=== PATIENT | female | born 1925 | race Caucasian/White ===

== ENCOUNTER 2016-03-20 10:51 | Inpatient (IN) | payer OTHER ==
[2016-03-20 11:52] LABS: MANUAL DIFF NEEDED? NO
[2016-03-20 11:53] LABS: BASO% 0.3 % (0.0-0.8); EOS# 0.05 X1000 (0.0-0.7); EOS% 0.8 % (0.0-10.0); HEMOGLOBIN 11.2 g/dL (12.0-16.0); LYMPH# 1.52 X1000 (1.2-3.4); LYMPH% 25.8 % (20.5-51.1); MCH 34.8 PG (27-31); MCHC 33.9 g/dL (33-37); MCV 102.5 FL (81-99); MONO# 0.64 X1000 (0.11-0.59); MONO% 10.9 % (1.7-9.3); NEUT% 62.2 % (42.2-75.2); PLT 245 X1000 (130-400); RBC 3.22 XMIL (4.2-5.4)
--- NOTE | 2016-03-20 12:12 | PROVIDER DOCUMENTATION ---
HPI-General Adult - General Chief Complaint: Weakness Stated Complaint: LOW BP/SOB Time Seen by Provider: 03/20/16 11:32 Source: patient, family Allergies/Adverse Reactions: Patient Allergies Allergy/AdvReac Type Severity Reaction Status Date / Time atorvastatin calcium * Allergy Mild NAUSEA/VOMI Verified 10/23/15 12:44 [From Lipitor] TING Latex, Natural Rubber Allergy Mild RASH Verified 10/23/15 12:44 warfarin sodium * Allergy Mild NAUSEA Verified 10/23/15 12:44 [From Coumadin] Home Medications: Home Medication List Medication Instructions Recorded Confirmed Last Taken Type Amiodarone [Cordarone] 100 mg PO BID 11/10/13 10/23/15 10/23/15 07:00 History Aspirin EC 81 mg PO DAILY 02/16/15 10/23/15 1 Day Ago History Ca/D3/Mag/Zinc/Marissa/Jose Rafael/Mgbor 1 each PO DAILY 02/16/15 10/23/15 02/15/15 21:00 History [Caltrate 600+D3+Min Chew Tab] Ergocalciferol (Vitamin D2) 50,000 unit PO EVERY OTHER DAY 02/16/15 10/23/1503/03 09:00 History [Vitamin D] Metoprolol Succinate E.r. [Toprol 25 mg PO DAILY 02/16/15 10/23/15 10/23/15 07: 00 History Xl] Temazepam [Restoril] 15 mg PO HS PRN PRN #15 capsule 02/17/15 10/23/15 Unknown Rx Ondansetron [Zofran] 4 mg PO Q6H PRN PRN #20 tablet 10/19/15 10/23/15 10/22/15 12:00 Rx Cephalexin [Keflex] 500 mg PO TID 10/23/15 10/23/15 10/23/15 07:10 History Levothyroxine [Synthroid] 100 microgm PO DAILY 10/23/15 10/23/15 10/23/15 History 100 Lisinopril [Zestril] 10 mg PO DAILY 10/23/15 10/23/15 10/23/15 07:00 History Hydrocodone/APAP 10 mg/325 mg 1 - 2 each PO Q4H PRN PRN #60 10/25/15 Unknown Rx [[place]-10] tablet Rivaroxaban [Xarelto] 10 mg PO QHS #0 tablet 10/25/15 Unknown Rx - History of Present Illness -Gen Adult Nature of Presenting Problems: Reports to er with cc of generalized weakness sudden onset this morning. Normally walks with walker and was unable to. Reprots been living in assisted living for 1 weak now. Has had a cough and poor appetite per daughter. [facility] treated with levaquin for possible uti. Also complains of left ear pain. Location of Pain/Injury: reports: generalized Severity: reports: moderate Onset/Duration: reports: this morning Timing: reports: still present Similar Symptoms Previously?: No Recently seen or treated by another doctor?: Yes Review of Systems - Adult - REVIEW OF SYSTEMS - ADULT Constitutional: reports: other (gen weak). denies: chills, fever, fatique Eyes: reports: no symptoms reported Ears, Nose, Mouth & Throat: reports: ear pain. denies: sinus problem, throat pain Cardiovascular: denies: chest pain, irregular heart rate, orthopnea, syncope Respiratory: reports: cough. denies: pleurisy, shortness of breath, wheezing Gastrointestinal: reports: poor appetite. denies: abdominal pain, diarrhea, difficulty swallowing, nausea, vomiting Genitourinary: reports: no symptoms reported Musculoskeletal: reports: no symptoms reported Integumentary: reports: no symptoms reported Neurological: reports: no symptoms reported Psychiatric: reports: no symptoms reported Endocrine: reports: no symptoms reported Hematologic/Lymphatic: reports: no symptoms reported Allergic/Immunologic: reports: no symptoms reported All Other Systems: Reviewed and Negative Past History - Adult - PAST MEDICAL HISTORY-ADULT Review of Records: reports: Nursing Assessment Review Major Childhood Illnesses: reports: denies history Cardiovascular: reports: cardiac disease, A-Fib, HTN, hyperlipidemia, pacemaker Respiratory: reports: denies history Gastrointestinal: reports: denies history Obstetrical/Gynecological: reports: denies history Genitourinary: reports: denies history Musculoskeletal: reports: denies history Neurological: reports: denies history Endocrine/Immune: reports: thyroid disorder (Hypo) Other Conditions: reports: other cancer (Skin cancer on nose (removed)) Additional History: Breast Cancer - PRIOR SURGERIES/PROCEDURES Surgical/Procedure History: reports: cholecystectomy, cardiac stent (x2), pacemaker, hysterectomy, other (Mastectomy of Right Breast) - IMMUNIZATION STATUS Childhood Immunizations: See Nurse Assessment Flu Vaccine: See Nurse Assessment - FAMILY HISTORY Family History: reviewed, not pertinent - SOCIAL HISTORY Smoking: denies Substance Use: none/never Physical Exam-General - PHYSICAL EXAM-ADULT Initial Vital Signs Reviewed: Yes - CONSTITUTIONAL General Appearance: appears well, alert, no apparent distress - EYES Eyes: PERRL/EOMI - NECK Neck: non-tender, full range of motion, supple, normal inspection - RESPIRATORY Respiratory: chest non-tender, lungs clear, normal breath sounds, no pleuratic chest pain, no respiratory distress, no accessory muscle use - CARDIOVASCULAR Cardiovascular: normal peripheral pulses, regular rate, rhythm, no edema, no gallop, no JVD, no murmur - MUSCULOSKELETAL Extremity: normal range of motion, non-tender - SKIN Integumentary: normal color, normal turgor, warm/dry - PSYCHIATRIC Psych/Mental Status: normal mood/affect, normal thought content, normal thought process, oriented x 3 Progress - PLAN OF CARE/RESULTS Progress/Plan/Lab Results: Orders Category Date Time Status Cardiac Monitoring DIRECTED Care 03/20/16 11:33 Active Saline Loc NOW Care 03/20/16 11:33 Active CHEST-PORTABLE [RAD] Stat Exams 03/20/16 11:33 Taken CBC WITH ELECTRONIC DIFF [HEME] Stat Lab 03/20/16 11:49 Completed CK PROFILE [SP CHEM] Stat Lab 03/20/16 11:49 Received COMPREHENSIVE METABOLIC PANEL [CHEM] Stat Lab 03/20/16 11:49 Received MAGNESIUM [CHEM] Stat Lab 03/20/16 11:49 Received PRO B-NATRIURETIC PEPTIDE Stat Lab 03/20/16 11:49 Received [address]IME WITH INR PL [COAG] Stat Lab 03/20/16 11:[address] [COAG] Stat Lab 03/20/16 11:49 Received TROPONIN T Stat Lab 03/20/16 11:[address] W/POSS RFLX CULT [URINALYSIS] Stat Lab 03/20/16 11:33 Uncollected EKG [EKG] Stat Ther 03/20/16 11:33 Ordered Vital Signs - 24 hr 03/20/16 10:58 Temperature 98 F Pulse Rate 72 Respiratory 18 Rate Blood Pressure 171/89 O2 Sat by Pulse 97 Oximetry Laboratory Tests 03/20/16 03/20/16 03/20/16 11:49 11:49 11:49 WBC RBC Hgb Hct MCV MCH MCHC RDW Std Deviation Plt Count MPV Immature Gran % (Auto) Neut % (Auto) Lymph % (Auto) [place] % (Auto) Eos % (Auto) Baso % (Auto) Immature Gran # (Auto) Neut # (Auto) Lymph # (Auto) [place] # (Auto) Eos # (Auto) Baso # (Auto) PT INR APTT (Factor Assay) Sodium 129 L Potassium 3.8 Chloride 96 L Carbon Dioxide 25 Anion Gap 8 BUN 10 Creatinine 1.1 H Estimated GFR/1.73 m2 47 BUN/Creatinine Ratio 9 Glucose 92 Calculated Osmolality 258 Calcium 9.1 Magnesium 2.0 Total Bilirubin 0.50 AST 23 ALT 11 Alkaline Phosphatase 72 Creatine Kinase 93 Troponin T < 0.010 Ton-C-Mlgtfknrxpo Pept 4271 H Total Protein 6.6 Albumin 3.8 Globulin 3.0 Albumin/Globulin Ratio 1.0 Urine Source Urine Color Urine Clarity Urine pH Ur Specific [place] Urine Protein Urine Ketones Urine Blood Urine Nitrite Urine Bilirubin Urine Urobilinogen Urine Microscopic RBC Urine WBC Ur Epithelial Cells Urine Glucose 03/20/16 03/20/16 03/20/16 11:49 11:49 12:07 WBC 5.89 RBC 3.22 L Hgb 11.2 L Hct 33.0 L MCV 102.5 H MCH 34.8 H MCHC 33.9 RDW Std Deviation 13.4 Plt Count 245 MPV 10.0 Immature Gran % (Auto) 0.0 Neut % (Auto) 62.2 Lymph % (Auto) 25.8 [place] % (Auto) 10.9 H Eos % (Auto) 0.8 Baso % (Auto) 0.3 Immature Gran # (Auto) 0.00 Neut # (Auto) 3.66 Lymph # (Auto) 1.52 [place] # (Auto) 0.64 H Eos # (Auto) 0.05 Baso # (Auto) 0.02 PT 25.1 H INR 2.27 H APTT (Factor Assay) 38.9 Sodium Potassium Chloride Carbon Dioxide Anion Gap BUN Creatinine Estimated GFR/1.73 m2 BUN/Creatinine Ratio Glucose Calculated Osmolality Calcium Magnesium Total Bilirubin AST ALT Alkaline Phosphatase Creatine Kinase Troponin T Sag-X-Uyzhkzxpxun Pept Total Protein Albumin Globulin Albumin/Globulin Ratio Urine Source CLEAN CATCH Urine Color YELLOW Urine Clarity CLEAR Urine pH 6.5 Ur Specific [place] 1.005 Urine Protein NEGATIVE Urine Ketones NEGATIVE Urine Blood NEGATIVE Urine Nitrite NEGATIVE Urine Bilirubin NEGATIVE Urine Urobilinogen NORMAL Urine Microscopic RBC Not Reportable Urine WBC NEGATIVE Ur Epithelial Cells <10 Urine Glucose NEGATIVE - EKG 1 Time of EKG reading by physician:: 11:57 EKG Read and Signed by:: Libia Castle EKG Interpretation (*Must complete 3 of following elements*): Abnormal Rate: 71 Rhythm: atrial paced with prolonged AV conduction Welch: normal ST Wave: non-specific ST changes - XRAY 1 XRAY: Bilateral XRAY Study: Chest Impression: Abnormal (worsening pleural effusion) - CONSULTS/PCP/HOSPITALIST Notification #1 *Consult/PCP/Hospitalist*: PCP MD ANDRADE Time Discussed: 14:34 Consult Disposition: Admit Departure - Departure Time of Disposition Order: 14:38 DIAGNOSIS: Weakness CHF (congestive heart failure) Qualifiers: Congestive heart failure type: unspecified congestive heart failure type Congestive heart failure chronicity: unspecified congestive heart failure chronicity Qualified Code(s): I50.9 - Heart failure, unspecified Disposition: ADMITTED INPATIENT 09 Certified Medical Emergency: Emergent Condition: Stable Attestation - Scribe Verification/Attestation Scribe:: Victor Manuel Casey Acting as Scribe for:: Libia Castle Scribe documention review:: This chart was documented by a scribe and accurately reflects the service the provider performed and the decisions made by the provider.
[2016-03-20 12:16] LABS: ALBUMIN 3.8 g/dL (3.5-5.0); CALCIUM 9.1 mg/dL (8.8-10.2); POTASSIUM 3.8 mmol/L (3.5-5.1); TOTAL BILIRUBIN 0.5 mg/dL (0.20-1.00); TOTAL PROTEIN 6.6 g/dL (6.3-8.3)
[2016-03-20 12:18] LABS: INR 2.27 (0.86-1.15); PROTIME 25.1 Seconds (12.1-15.5)
[2016-03-20 12:19] LABS: PTT PL 38.9 Seconds (22.6-43.9)
[2016-03-20 12:23] LABS: URINE CULTURE PL NEEDED? NO; URINE SOURCE CLEAN CATCH
[2016-03-20 12:32] LABS: BILIRUBIN URINE NEGATIVE (NEGATIVE); BLOOD URINE NEGATIVE (NEGATIVE); CLARITY CLEAR (CLEAR); COLOR YELLOW; GLUCOSE URINE NEGATIVE (NEGATIVE); LEUKOCYTES URINE NEGATIVE (NEGATIVE); NITRITE URINE NEGATIVE (NEGATIVE); PH URINE 6.5; PROTEIN URINE NEGATIVE (NEGATIVE); SP GRAVITY URINE 1.005; UROBILINOGEN URINE NORMAL
[2016-03-20 12:43] LABS: URINE EPITHELIAL CELLS <10 /HPF (<10)
--- NOTE | 2016-03-20 12:55 | Diag Imaging Result Document ---
PROCEDURE NAME: CHEST-PORTABLE - 03/20/2016 ERECT AP PORTABLE CHEST: TIME: 1141 hours. FINDINGS: There is slightly increased pleural fluid on both sided compared to 03/03/2016. There is a pacemaker with leads in the right atrium and ventricle. IMPRESSION: Worsening pleural effusion.
--- NOTE | 2016-03-20 13:02 | EKG Report ---
Test Performed on : 03/20/2016 11:57:21 AM Test Reason : CHEST PAIN Blood Pressure : / mmHG Vent. Rate : 071 BPM Atrial Rate : 071 BPM P-R Int : 354 ms QRS Dur : 092 ms QT Int : 418 ms P-R-T Axes : 080 047 256 degrees QTc Int : 454 ms Atrial-paced rhythm with prolonged AV conduction Nonspecific ST and T wave abnormality Abnormal ECG When compared with ECG of 23-OCT-2015 12:35, Nonspecific T wave abnormality, worse in Anterior leads Nonspecific T wave abnormality has replaced inverted T waves in Lateral leads Unconfirmed Result
[2016-03-20] MEDS ORDERED: ZOFRAN IV PRN (18:04)
[2016-03-20] MEDS ORDERED: TYLENOL PO PRN (18:04)
[2016-03-20] MEDS: LASIX IV SCH (18:52)
[2016-03-21] MEDS: LASIX IV SCH (05:50)
[2016-03-21] MEDS ORDERED: DULCOLAX PR PRN (08:40)
[2016-03-21] MEDS ORDERED: LASIX IV SCH (08:42)
--- NOTE | 2016-03-21 09:21 | HISTORY AND PHYSICAL ---
CHIEF COMPLAINT: 1. Frequent falls. 2. Generalized weakness. HISTORY OF PRESENT ILLNESS: Patient is an 89-year-old female, who actually lives at home alone. She had been to the walk-in clinic a few days ago and was diagnosed with a presumptive UTI and placed on antibiotics. However this did not improve her symptoms. After going back home she continued to have generalized weakness. Noted that her blood pressure was low. She was intermittently confused at times. She has had a couple falls. She normally walks with a walker but she was unable to walk this morning, or to be able to actually dress herself. She has been coughing some but denies any true fevers or myalgias. ALLERGIES: Lipitor causing nausea. Latex causing a rash. Coumadin causing nausea. MEDICATIONS: Amiodarone 100 mg b.i.d., aspirin, calcium, vitamin D, Toprol XR 25. Restoril 15, Zofran p.r.n., levothyroxine 100, Zestril 10, Xarelto 10 at bedtime and [place] p.r.n. REVIEW OF SYSTEMS: The patient denies any fevers or chills. She does state that she has been fatigued, tired, difficulty walking, difficulty dressing herself. She denies any focalized weakness or numbness. Notes that she has not been eating or drinking well. She has not been going to the restroom well, has had some constipation. She denies any hematochezia, melena, hematemesis or hematuria. She denies any weight loss but also admits that she does not remember the last time she checked her weight. She denies any chest pain, palpitations. PAST MEDICAL HISTORY: Known coronary artery disease status post cardiac stenting, history of atrial fibrillation, hypertension, hyperlipidemia. She has a pacemaker. Hypothyroidism. She has had a history of skin cancer on her nose, breast cancer with a mastectomy on the right. History of gallbladder disease. PAST SURGICAL HISTORY: Status post cholecystectomy. Status post hysterectomy. FAMILY HISTORY: Noncontributory. SOCIAL HISTORY: Patient lives at home alone. She has family, they do check on her frequently. She does not smoke or drink. PHYSICAL EXAMINATION: VITAL SIGNS: Temperature 98 degrees, pulse 72, respiratory rate 18, blood pressure 171/89. GENERAL: Patient is well developed, elderly female who is pleasant to talk with. She is awake, alert, appears oriented. She is in no respiratory distress. She is lying flat in the bed. HEENT: Normocephalic; atraumatic. [place]. NECK: Supple. CARDIOVASCULAR: Regular rate and rhythm. No appreciable murmurs. CHEST: Relatively clear. Positive rhonchi. ABDOMEN: Soft. EXTREMITIES: Moves all extremities but generalized weakness. NEUROLOGIC: No focal changes. LABORATORY DATA: Sodium 129, creatinine 1.1, BUN 10, BNP 4271. Hemoglobin and hematocrit 11 and 35. INR 2.27. EKG, atrial paced. Chest x-ray demonstrates mild pleural effusion. ASSESSMENT: 1. Hyponatremia. 2. Hypercoagulably. Patient's INR is elevated. She is on Xarelto. 3. Mild anemia, chronic. 4. Right-sided pleural effusion. Slightly worse than previous. 5. History of atrial fibrillation. 6. Known coronary artery disease. 7. Hypertension. 8. Hypothyroidism. 9. Advanced age. PLAN: We will admit the patient to the hospital. Discussed with the family her current situation. She has a right-sided pleural effusion. We will attempt small doses of Lasix to see if this will help. Certainly we do not want to attempt chest tube at her age or chronic status. She has a known history of atrial fibrillation but she has frequently been then falling and fatigued. This certainly creates other problems with her staying on Xarelto and even though she is on a low dose this certainly may need to be held as well. We will discuss this as well with the family. It is certainly concerning given her advanced age that she may not be able to return back to independent living. Discussed with the family that this may be advancing of her known coronary artery disease but given her age heart catheterization etc. may be more problematic than helpful. We will continue to follow.
[2016-03-21] MEDS: LACTULOSE PO SCH ×2 (09:28→20:09)
[2016-03-21] MEDS: MIRALAX PO SCH (09:29)
[2016-03-21] MEDS: COLACE PO SCH ×2 (09:29→20:08)
[2016-03-21] MEDS: VITAMIN D PO SCH (09:29)
[2016-03-21] MEDS: THERA M PLUS PO SCH (09:29)
[2016-03-21] MEDS: TOPROL XL PO SCH (09:29)
[2016-03-21] MEDS: ASPIRIN EC PO SCH (09:29)
[2016-03-21] MEDS: PERICOLACE PO SCH (09:29)
[2016-03-21] MEDS: REMERON PO SCH (20:08)
[2016-03-21] MEDS: FLONASE NAS SCH (20:08)
[2016-03-21] MEDS: PERCOCET-10 PO PRN (20:09)
[2016-03-21] MEDS: RESTORIL PO PRN (20:09)
[2016-03-22 05:46] LABS: HEMATOCRIT 34.4 % (37.0-47.0); HEMOGLOBIN 11.2 g/dL (12.0-16.0); MCHC 32.6 g/dL (33-37); MCV 104.6 FL (81-99); MPV 10.8 FL (7.4-10.4); RBC 3.29 XMIL (4.2-5.4)
[2016-03-22 06:22] LABS: ALBUMIN 3.4 g/dL (3.5-5.0); POTASSIUM 2.7 mmol/L (3.5-5.1); TOTAL BILIRUBIN 0.3 mg/dL (0.20-1.00); TOTAL PROTEIN 5.8 g/dL (6.3-8.3)
[2016-03-22 06:29] LABS: FREE T4 1.79 ng/dL (0.93-1.70)
[2016-03-22] MEDS ORDERED: SYNTHROID PO SCH ×3 (07:00)
[2016-03-22] MEDS: PROTONIX PO SCH (07:09)
[2016-03-22] MEDS: COLACE PO SCH ×2 (08:33→20:10)
[2016-03-22] MEDS: ASPIRIN EC PO SCH (08:33)
[2016-03-22] MEDS: LACTULOSE PO SCH ×2 (08:33→20:10)
[2016-03-22] MEDS: TOPROL XL PO SCH (08:33)
[2016-03-22] MEDS: PERICOLACE PO SCH (08:33)
[2016-03-22] MEDS: MIRALAX PO SCH (08:33)
[2016-03-22] MEDS: VITAMIN D PO SCH (08:33)
[2016-03-22] MEDS: THERA M PLUS PO SCH (08:38)
[2016-03-22] MEDS: POTASSIUM CHLORIDE 20 MEQ/SWI 100 ML IV SCH ×2 (09:51→14:32)
[2016-03-22] MEDS: PRINIVIL PO SCH (09:52)
--- NOTE | 2016-03-22 12:39 | Diag Imaging Result Document ---
PROCEDURE NAME: CHEST-2 VIEWS - 03/22/2016 CHEST 2 VIEWS: Compared with 03/20/2016. FINDINGS: There has been interval decrease in bilateral pleural effusions. There is a residual small left pleural effusion. There is stable mild interstitial marking prominence. There is no dense consolidation or pneumothorax identified. Heart size appears the upper range of normal. IMPRESSION: Decrease in pleural effusions. Residual small pleural effusion on the left. Stable mild interstitial marking prominence.
--- NOTE | 2016-03-22 13:25 | PROGRESS NOTE ---
DATE: 03/22/2016 SUBJECTIVE: Patient thinks she feels a little bit better today. She denies any chest pain, palpitations. Denies any fevers or chills. Denies cough, congestion, or shortness of breath. However she notes that she is unable to get out of bed on her own, still requiring some assistance. PHYSICAL: Temp 97, pulse 71, respiratory 18, BP 107/51, sat 95% on room air.General: Patient is a well-developed female who is elderly and frail in appearance. She is awake, alert. Neck: Supple. CV: Regular rate. Chest: Relatively clear. Abdomen: Soft. Extremities: Moves all extremities but generalized weakness. DIAGNOSTIC DATA: CBC normal. Sodium 139. Potassium 2.1. Creatinine 1.1 with an estimated GFR of 47. TSH 7.05, free T4 1.79. ASSESSMENT: 1. Hypothyroidism. Patient's TSH is elevated but her free T4 was also elevated. We will not increase her Synthroid yet. Certainly unclear if she has been taking this at home. 2. Hyponatremia. Sodium is 2.7, will replace. 3. Adult failure to thrive. Continue physical therapy. 4. Hypercoagulopathy. Continue to hold her Xarelto given her increased risk of falling. 5. Hypertension stable. 6. Known coronary artery disease. 7. History of atrial fibrillation. PLAN: We will continue patient in the hospital. Continue to hold her Xarelto. We will hold her Lasix this morning. We will restart her Prinivil. Continue her Synthroid at 125. Recheck her labs in the morning. Further orders as needed.
[2016-03-22] MEDS ORDERED: POTASSIUM CHLORIDE 20% LIQUID PO ONE (14:26)
[2016-03-22] MEDS: POTASSIUM CHLORIDE 20% LIQUID PO ONE ×2 (20:08→20:17)
[2016-03-22] MEDS: FLONASE NAS SCH (20:09)
[2016-03-22] MEDS: REMERON PO SCH (20:10)
[2016-03-22] MEDS: RESTORIL PO PRN (20:52)
[2016-03-22] MEDS: PERCOCET-10 PO PRN (20:52)
[2016-03-23] MEDS: PROTONIX PO SCH (06:21)
[2016-03-23 06:57] LABS: HEMATOCRIT 36.8 % (37.0-47.0); HEMOGLOBIN 11.8 g/dL (12.0-16.0); MCH 34.2 PG (27-31); MCHC 32.1 g/dL (33-37); MCV 106.7 FL (81-99); MPV 10.6 FL (7.4-10.4); RBC 3.45 XMIL (4.2-5.4)
[2016-03-23] MEDS ORDERED: SYNTHROID PO SCH ×2 (07:00)
[2016-03-23 07:29] LABS: ALBUMIN 3.3 g/dL (3.5-5.0); CALCIUM 9.2 mg/dL (8.8-10.2); MAGNESIUM 2.2 mg/dL (1.5-2.7); POTASSIUM 4.8 mmol/L (3.5-5.1); TOTAL BILIRUBIN 0.3 mg/dL (0.20-1.00); TOTAL PROTEIN 6.2 g/dL (6.3-8.3)
[2016-03-23 07:42] LABS: FREE T4 1.82 ng/dL (0.93-1.70)
[2016-03-23] MEDS: MIRALAX PO SCH (09:59)
[2016-03-23] MEDS: LACTULOSE PO SCH ×2 (09:59→21:45)
[2016-03-23] MEDS: PERICOLACE PO SCH (10:00)
[2016-03-23] MEDS: THERA M PLUS PO SCH (10:00)
[2016-03-23] MEDS: ASPIRIN EC PO SCH (10:00)
[2016-03-23] MEDS: VITAMIN D PO SCH (10:00)
[2016-03-23] MEDS: PRINIVIL PO SCH (10:00)
[2016-03-23] MEDS: TOPROL XL PO SCH (10:00)
[2016-03-23] MEDS: COLACE PO SCH ×3 (10:00→21:45)
[2016-03-23] MEDS ORDERED: ZOFRAN ODT PO PRN (12:40)
[2016-03-23] MEDS: RESTORIL PO PRN (19:55)
[2016-03-23] MEDS: REMERON PO SCH ×2 (19:55→21:45)
[2016-03-23] MEDS: FLONASE NAS SCH (21:46)
[2016-03-24] MEDS: PROTONIX PO SCH ×2 (05:58→07:08)
[2016-03-24] MEDS: SYNTHROID PO SCH ×2 (05:58→07:08)
[2016-03-24 08:04] VITALS: BP 146/68
--- NOTE | 2016-03-24 08:08 | PROGRESS NOTE ---
DATE: 03/23/2016 SUBJECTIVE: Patient states she is feeling a little bit better. A little bit stronger, although she has not been out of bed by herself. Denies any cough and congestion. OBJECTIVE: Vital Signs: Reviewed and stable. Patient is awake, alert. She is lying in bed. She is in no respiratory distress. She is pleasant to talk with. Neck: Supple. CV: Regular rate. Chest: Positive rhonchi, otherwise clear. Abdomen: Soft. Extremities: Moves all extremities, but generalized weakness noted. ASSESSMENT: 1. Hypokalemia, resolved. 2. Generalized weakness. 3. Adult failure to thrive. 4. Hypercoagulopathy. Xarelto is being held due to her high risk to falling. 5. History of atrial fibrillation. She currently is in sinus rhythm. 6. Known coronary artery disease. 7. Hypertension. 8. Hypothyroidism. PLAN: We will continue patient's current plan of therapy. We will continue physical therapy. We will continue to look for rehab facility.
--- NOTE | 2016-03-24 08:30 | DISCHARGE SUMMARY ---
ADMISSION DATE: 03/20/2016 DISCHARGE DATE: 03/24/2016 DISCHARGE DIAGNOSES: 1. Frequent falls. 2. Adult failure to thrive. 3. Generalized weakness. 4. History of atrial fibrillation, currently in sinus rhythm. 5. Hyper-coagulopathy. Xarelto being held currently secondary to patient's high risk of falling. 6. Known coronary artery disease. 7. Hypertension. 8. Hypothyroidism. CONSULTATIONS: None. PROCEDURE: None. BRIEF HOSPITAL COURSE: The patient is an 89-year-old female who was admitted as noted on the HPI. Treated in the usual fashion. She was noted to have a right-sided pleural effusion. Was given Lasix. This dropped her potassium which was easily replaced. Physical therapy was consulted. Thankfully, she had an uneventful hospital course. DISPOSITION: The patient will be discharged to rehab. She will continue her home medications. Currently, we will only use aspirin for her anticoagulation, given her high risk of falling. Should she become more steady in her gait, certainly could restart Xarelto in rehab.
[2016-03-24] MEDS: PRINIVIL PO SCH (08:56)
[2016-03-24] MEDS: TOPROL XL PO SCH (08:56)
[2016-03-24] MEDS: PERICOLACE PO SCH (08:56)
[2016-03-24] MEDS: VITAMIN D PO SCH (08:56)
[2016-03-24] MEDS: LACTULOSE PO SCH (08:56)
[2016-03-24] MEDS: MIRALAX PO SCH (08:56)
[2016-03-24] MEDS: COLACE PO SCH (08:56)
[2016-03-24] MEDS: ASPIRIN EC PO SCH (08:56)
[2016-03-24] MEDS: THERA M PLUS PO SCH (08:57)
[2016-03-24] MEDS: PERCOCET-10 PO PRN (10:52)
--- NOTE | 2016-04-20 14:29 | DISCHARGE SUMMARY ---
ADMISSION DATE: 03/20/2016 DISCHARGE DATE: 03/24/2016 DISCHARGE SUMMARY ADDENDUM: The patient has pleural effusion not otherwise specified. The patient has no previous history of congestive heart failure; therefore, congestive heart failure was not dictated.
== END 2016-03-24 11:18 | DRG 187 ==
LOC: P.ED 10:51 → P.MEDSURG 14:28
PROVIDERS: ADMIT Family Medicine; ATTEND Family Medicine
DX: J90 Pleural effusion, not elsewhere classified (principal); E87.1 Hypo-osmolality and hyponatremia; D64.9 Anemia, unspecified; I48.91 Unspecified atrial fibrillation; I25.10 Atherosclerotic heart disease of native coronary artery without angina pectoris; I10 Essential (primary) hypertension; E03.9 Hypothyroidism, unspecified; K59.00 Constipation, unspecified; E78.5 Hyperlipidemia, unspecified; R79.1 Abnormal coagulation profile; R62.7 Adult failure to thrive; E87.6 Hypokalemia; Z79.01 Long term (current) use of anticoagulants; Z91.81 History of falling; Z95.5 Presence of coronary angioplasty implant and graft; Z85.828 Personal history of other malignant neoplasm of skin; Z95.0 Presence of cardiac pacemaker; Z85.3 Personal history of malignant neoplasm of breast
CPT/HCPCS: 36415; 71010; 71020; 80053; 81001; 82550; 82948; 83735; 83880; 84134; 84439; 84443; 84484; 85025; 85027; 85610; 85730; 87088; 93005; 99285; J1940; J3480

== ENCOUNTER 2016-04-14 08:44 | Inpatient (IN) | payer OTHER ==
[2016-04-14] MEDS ORDERED: LASIX IV ONE (09:09)
--- NOTE | 2016-04-14 09:14 | PROVIDER DOCUMENTATION ---
HPI-Respiratory General - General Chief Complaint: Shortness of Breath Stated Complaint: SOB Time Seen by Provider: 04/14/16 09:08 Source: patient, family (daughter) Allergies/Adverse Reactions: Patient Allergies Allergy/AdvReac Type Severity Reaction Status Date / Time atorvastatin calcium * Allergy Mild NAUSEA/VOMI Verified 10/23/15 12:44 [From Lipitor] TING Latex, Natural Rubber Allergy Mild RASH Verified 10/23/15 12:44 warfarin sodium * Allergy Mild NAUSEA Verified 10/23/15 12:44 [From Coumadin] Home Medications: Home Medication List Medication Instructions Recorded Confirmed Last Taken Type Aspirin EC 81 mg PO DAILY 02/16/15 03/20/16 03/19/16 08:00 History Metoprolol Succinate E.r. [Toprol 25 mg PO DAILY 02/16/15 03/20/16 03/19/16 21: 00 History Xl] Temazepam [Restoril] 15 mg PO HS PRN PRN #15 capsule 02/17/15 03/20/16 03/19/16 21:00 Rx Cephalexin [Keflex] 500 mg PO TID 10/23/15 03/21/16 03/20/16 08:00 History Bisacodyl [Dulcolax] 1 supp RC DAILY PRN 03/20/16 03/20/16 03/17/16 09:00 History Calcium Carbonate/Vitamin D3 1 tab PO DAILY 03/20/16 03/20/16 03/20/16 08:00 History [Oyster Shell 500-Vit D3 200 Tb] Cholecalciferol (Vitamin D3) 400 unit PO DAILY 03/20/16 03/20/16 03/20/16 08:00 History [Vitamin D3] Docusate Sodium [Colace] 100 mg PO BID 03/20/16 03/20/16 03/20/16 08:00 History Fluticasone 50 Mcg Nasal [place] 2 sprays INH HS 03/20/16 03/20/16 03/19/16 21:00 History [Flonase] LISINOpril [Prinivil] 5 mg PO DAILY 03/20/16 03/20/16 03/19/16 09:00 History Lactulose 30 ml PO BID 03/20/16 03/20/16 03/20/16 08:00 History Levothyroxine [Synthroid] 125 microgm PO DAILY@0700 03/20/16 03/21/16 03/19/16 08:00 History Mirtazapine 45 mg PO HS 03/20/16 03/20/16 03/19/16 21:00 History Multivitamin,Therapeutic [Thera] 1 tab PO DAILY 03/20/16 03/20/16 03/20/16 08: 00 History Pantoprazole [Protonix] 40 mg PO DAILY@0700 03/20/16 03/20/16 03/20/16 07:00 History Polyethylene Glycol 3350 [Miralax] 17 gm PO DAILY 03/20/16 03/20/16 03/20/16 08: 00 History Sennosides/Docusate Sodium 1 each PO DAILY 03/20/16 03/20/16 03/20/16 08:00 History [Sennalax-S Tablet] Oxycodone HCl/Acetaminophen 1 tab PO Q4H PRN PRN #30 tablet 03/24/16 Unknown Rx [Percocet 10-325 mg Tablet] - History of Present Illness-Resp Nature of Presenting Problem: Pt is 89 y/o F presents to the ED with SOB. Pt states waking up this am at 0400 and feeling SOB. Pt states she struggled to breathe. Pt's daughter states admitted last month to hospital and stayed for two to three days then was d/c to [facility] for rehab and Pt just came home last . Pt states taking all her meds this am prior to arrival. Quality of Pain: reports: tightness Severity in ED: reports: mild Onset/Duration: reports: this morning (0400) Timing: reports: still present, intermittent Exposure: reports: unknown cause Cough Quality/Degree: reports: no cough Current Respiratory Medication Therapy: Initiated see nurses note Modifying Factors: improves with: nothing Associated Symptoms: reports: shortness of breath. denies: chest pain/soreness , cough, dizziness, earache, facial pain, fever/chills, flu-like symptoms, headache, heart racing, hurts to breathe, hyperventilating, lightheadedness, muscle/bodyaches, nasal congestion, nasal drainage, sinus pain, short of breath , sore throat, sweaty, wheezing Similar Symptoms Previously?: Yes Recently seen or treated by another doctor?: No Review of Systems - Adult - REVIEW OF SYSTEMS - ADULT Constitutional: denies: chills, fever Eyes: denies: blurred vision, double vision Ears, Nose, Mouth & Throat: denies: ear pain, nose pain, throat pain Cardiovascular: denies: chest pain, heart murmur, irregular heart rate Respiratory: reports: shortness of breath. denies: cough, wheezing Gastrointestinal: denies: abdominal pain, diarrhea, nausea, vomiting Genitourinary: denies: dysuria, hematuria Musculoskeletal: denies: bone pain, joint pain, neck pain Integumentary: denies: hives, itching, rash Neurological: denies: dizziness/vertigo, headache/migraines Psychiatric: reports: no symptoms reported Endocrine: reports: no symptoms reported Hematologic/Lymphatic: reports: no symptoms reported Allergic/Immunologic: reports: no symptoms reported All Other Systems: Reviewed and Negative Past History - Adult - PAST MEDICAL HISTORY-ADULT Review of Records: reports: Nursing Assessment Review, Medications Reviewed, Social history reviewed & non-contributory. Major Childhood Illnesses: reports: denies history Cardiovascular: reports: cardiac disease, A-Fib, CHF, HTN, hyperlipidemia, [place], pacemaker Respiratory: reports: sleep apnea Gastrointestinal: reports: denies history Obstetrical/Gynecological: reports: other (breast cancer ) Genitourinary: reports: denies history Musculoskeletal: reports: denies history Neurological: reports: denies history Endocrine/Immune: reports: thyroid disorder (Hypo) Other Conditions: reports: other cancer (Skin cancer on nose (removed)) Additional History: Breast Cancer - PRIOR SURGERIES/PROCEDURES Surgical/Procedure History: reports: cholecystectomy, cardiac stent (x2), pacemaker, hysterectomy, other (Mastectomy of Right Breast) - IMMUNIZATION STATUS Childhood Immunizations: See Nurse Assessment Flu Vaccine: See Nurse Assessment - FAMILY HISTORY Family History: reviewed, not pertinent - SOCIAL HISTORY Smoking: denies Substance Use: denies Living Situation: family Physical Exam-General - PHYSICAL EXAM-ADULT Initial Vital Signs Reviewed: Yes - CONSTITUTIONAL General Appearance: appears well, alert, no apparent distress, slow to respond - EYES Eyes: PERRL/EOMI, pink conjunctivae, fundi clear, no AV nicking - HEAD, EARS, NOSE, MOUTH & THROAT HENMT: normocephalic/atraumatic, moist mucous membranes, normal ENT inspection, TMs normal, pharynx normal - NECK Neck: non-tender, full range of motion, supple, normal inspection - RESPIRATORY Respiratory: chest non-tender, lungs clear, no pleuratic chest pain, no respiratory distress, no accessory muscle use, rales (bilateral bases) - CARDIOVASCULAR Cardiovascular: normal peripheral pulses, regular rate, rhythm, no edema, no gallop, no JVD, no murmur - GASTROINTESTINAL (ABDOMEN) Abdominal Exam: normal bowel sounds, non tender, soft, no organomegaly, no pulsatile mass - LYMPHATIC Lymphatic: no adenopathy - MUSCULOSKELETAL Back Exam: normal inspection, no CVA tenderness, no vertebral tenderness Extremity: normal range of motion, non-tender, normal gait, normal inspection, no pedal edema, no calf tenderness, normal capillary refill, pelvis stable - SKIN Integumentary: normal color, normal turgor, warm/dry - NEUROLOGIC Neurologic: behavioral health consultant II-XII nml as tested, grossly normal, no motor/sensory deficits - PSYCHIATRIC Psych/Mental Status: normal mood/affect, normal thought content, normal thought process, oriented x 3 Progress - PLAN OF CARE/RESULTS Progress/Plan/Lab Results: Orders Category Date Time Status Cardiac Monitoring DIRECTED Care 04/14/16 09:08 Active Oxygen Therapy- ED Nursing DIRECTED Care 04/14/16 09:08 Active Saline Loc NOW Care 04/14/16 09:08 Active CBC WITH ELECTRONIC DIFF [HEME] Stat Lab 04/14/16 09:08 Ordered CK PROFILE [SP CHEM] Stat Lab 04/14/16 09:08 Ordered COMPREHENSIVE METABOLIC PANEL [CHEM] Stat Lab 04/14/16 09:08 Ordered MAGNESIUM [CHEM] Stat Lab 04/14/16 09:08 Ordered PRO B-NATRIURETIC PEPTIDE Stat Lab 04/14/16 09:[address]IME WITH INR PL [COAG] Stat Lab 04/14/16 09:[address] [COAG] Stat Lab 04/14/16 09:08 Ordered TROPONIN T Stat Lab 04/14/16 09:08 Ordered Furosemide [Lasix] Med 04/14/16 09:09 Discontinued 40 mg IV NOW ONE EKG [EKG] Stat Ther 04/14/16 09:08 Ordered Vital Signs - 24 hr 04/14/16 08:50 Temperature 97.4 F L Pulse Rate 73 Respiratory 18 Rate Blood Pressure 175/91 O2 Sat by Pulse 94 L Oximetry Laboratory Tests 04/14/16 04/14/16 04/14/16 09:55 09:55 09:55 WBC RBC Hgb Hct MCV MCH MCHC RDW Std Deviation Plt Count MPV Immature Gran % (Auto) Neut % (Auto) Lymph % (Auto) Stanton % (Auto) Eos % (Auto) Baso % (Auto) Immature Gran # (Auto) Neut # (Auto) Lymph # (Auto) Stanton # (Auto) Eos # (Auto) Baso # (Auto) PT INR APTT (Factor Assay) Sodium 136 Potassium 3.9 Chloride 100 Carbon Dioxide 23 L Anion Gap 13 BUN 12 Creatinine 0.9 Estimated GFR/1.73 m2 59 BUN/Creatinine Ratio 13 Glucose 92 Calculated Osmolality 271 Calcium 9.0 Magnesium 1.9 Total Bilirubin 0.40 AST 22 ALT 12 Alkaline Phosphatase 72 Creatine Kinase 67 Troponin T < 0.010 [id number]-[id number] Pept 4969 H Total Protein 6.0 L Albumin 3.6 Globulin 2.0 Albumin/Globulin Ratio 2.0 04/14/16 04/14/16 09:55 09:55 WBC 5.73 RBC 3.03 L Hgb 10.4 L Hct 31.4 L MCV 103.6 H MCH 34.3 H MCHC 33.1 RDW Std Deviation 12.8 Plt Count 233 MPV 9.5 Immature Gran % (Auto) 0.2 Neut % (Auto) 61.0 Lymph % (Auto) 27.9 Stanton % (Auto) 9.2 Eos % (Auto) 1.0 Baso % (Auto) 0.7 Immature Gran # (Auto) 0.01 Neut # (Auto) 3.49 Lymph # (Auto) 1.60 Stanton # (Auto) 0.53 Eos # (Auto) 0.06 Baso # (Auto) 0.04 PT 13.9 INR 1.04 APTT (Factor Assay) 27.8 Sodium Potassium Chloride Carbon Dioxide Anion Gap BUN Creatinine Estimated GFR/1.73 m2 BUN/Creatinine Ratio Glucose Calculated Osmolality Calcium Magnesium Total Bilirubin AST ALT Alkaline Phosphatase Creatine Kinase Troponin T Dow-D-Qurixpmppad Pept Total Protein Albumin Globulin Albumin/Globulin Ratio - EKG 1 Time of EKG reading by physician:: 09:50 EKG Read and Signed by:: Matt Pinto EKG Interpretation (*Must complete 3 of following elements*): Abnormal Rate: 70 Rhythm: atrial-paced rhythm with prolonged AV conduction Comments: rightward axis; nonspecific ST and T wave abnormality - XRAY 1 XRAY: Bilateral XRAY Study: Chest Impression: Abnormal (this may be related to pneumonia and/or mild pulmonary edema) XRAY Interpretation: increased infiltrates at left base. - CONSULTS/PCP/HOSPITALIST Notification #1 *Consult/PCP/Hospitalist*: Dr. Mcgill Time Discussed: 11:53 (Dr. Mcgill accepted admit ) Reason/Comments: Dr. Pinto consulted with Dr. Mcgill about admit of PT Consult Disposition: Admit Departure - Departure Time of Disposition Order: 11:54 DIAGNOSIS: Pneumonia Qualifiers: Pneumonia type: due to unspecified organism Laterality: left Lung location: unspecified part of lung Qualified Code(s): J18.9 - Pneumonia, unspecified organism Disposition: ADMITTED INPATIENT 09 Certified Medical Emergency: Emergent Condition: Stable Additional Instructions: ED Follow Up Instructions: You have been treated by a care provider in the Emergency Department. These instructions are being provided to you so you can have an understanding of how to care for yourself upon discharge. Upon discharge from the Emergency Department, you are responsible for making arrangements for follow-up care by a physician of your choice. Take all prescribed medications as directed. Return to the Emergency Department immediately for any new or worsening symptoms. You may call the Physician Referral phone number at [phone] to obtain a list of Physicians who are taking new patients. Referrals: Carson Mcgill MD [Primary Care Provider] - Attestation - Scribe Verification/Attestation Scribe:: Cris Dai Acting as Scribe for:: Matt Pinto Scribe documention review:: This chart was documented by a scribe and accurately reflects the service the provider performed and the decisions made by the provider.
[2016-04-14 10:03] LABS: MANUAL DIFF NEEDED? NO
--- NOTE | 2016-04-14 10:03 | EKG Report ---
Test Performed on : 04/14/2016 09:50:28 AM Test Reason : CHEST PAIN Blood Pressure : / mmHG Vent. Rate : 070 BPM Atrial Rate : 070 BPM P-R Int : 302 ms QRS Dur : 086 ms QT Int : 420 ms P-R-T Axes : 008 094 253 degrees QTc Int : 453 ms Atrial-paced rhythm with prolonged AV conduction Rightward axis Nonspecific ST and T wave abnormality Abnormal ECG When compared with ECG of 20-MAR-2016 11:57, Nonspecific T wave abnormality no longer evident in Anterior leads Unconfirmed Result
[2016-04-14 10:04] LABS: BASO% 0.7 % (0.0-0.8); EOS# 0.06 X1000 (0.0-0.7); HEMATOCRIT 31.4 % (37.0-47.0); HEMOGLOBIN 10.4 g/dL (12.0-16.0); IMM GRAN# 0.01 X1000 (0.0-0.04); IMM GRAN% 0.2 % (0.0-0.5); LYMPH% 27.9 % (20.5-51.1); MCH 34.3 PG (27-31); MCHC 33.1 g/dL (33-37); MCV 103.6 FL (81-99); MONO# 0.53 X1000 (0.11-0.59); MONO% 9.2 % (1.7-9.3); MPV 9.5 FL (7.4-10.4); PLT 233 X1000 (130-400); RBC 3.03 XMIL (4.2-5.4)
[2016-04-14 10:18] LABS: INR 1.04 (0.86-1.15); PROTIME 13.9 Seconds (12.1-15.5)
[2016-04-14 10:19] LABS: PTT PL 27.8 Seconds (22.6-43.9)
[2016-04-14 10:37] LABS: ALBUMIN 3.6 g/dL (3.5-5.0); MAGNESIUM 1.9 mg/dL (1.5-2.7); POTASSIUM 3.9 mmol/L (3.5-5.1); TOTAL BILIRUBIN 0.4 mg/dL (0.20-1.00)
--- NOTE | 2016-04-14 11:17 | Diag Imaging Result Document ---
PROCEDURE NAME: CHEST-PORTABLE - 04/14/2016 PORTABLE CHEST: COMPARISON: Compared with March 22, 2016. FINDINGS: Heart size appears upper normal, allowing for the AP projection. There is transvenous cardiac pacemaker again seen. There is stable mild interstitial marking prominence. There is increased infiltrate of the left base. There are possible small left and tiny right pleural effusions. There is no pneumothorax identified. IMPRESSION: Increased infiltrate at left base. This may relate to pneumonia and/or mild pulmonary edema.
[2016-04-14] MEDS ORDERED: ROCEPHIN 1 GM/NS 50 ML IV ONE (11:53)
[2016-04-14] MEDS ORDERED: ZITHROMAX 500 MG/NS 250 ML IV ONE (11:53)
[2016-04-14] MEDS ORDERED: TORADOL IV PRN (11:55)
[2016-04-14] MEDS ORDERED: NS 1,000 ML IV SCH ×2 (12:00→14:15)
[2016-04-14] MEDS ORDERED: LASIX IV SCH (14:30)
[2016-04-14] MEDS: LASIX PO SCH ×2 (19:33→20:02)
[2016-04-14] MEDS: OMNICEF PO SCH ×2 (19:33→20:02)
[2016-04-14] MEDS: TYLENOL PO PRN (21:16)
--- NOTE | 2016-04-15 09:30 | Diag Imaging Result Document ---
PROCEDURE NAME: CHEST-2 VIEWS - 04/15/2016 FRONTAL AND LATERAL CHEST, TWO VIEWS: COMPARISON: Compared to 04/14/2016. FINDINGS: The patient has a left-sided pacemaker. There is a small left effusion. Pulmonary edema is less pronounced on the prior study. Interval improvement in the left basilar infiltrate and atelectasis. The patient has mild scoliosis. IMPRESSION: Interval improvement.
[2016-04-15] MEDS: OMNICEF PO SCH ×2 (09:46→21:36)
[2016-04-15] MEDS: LASIX PO SCH ×2 (09:46→21:37)
[2016-04-15] MEDS: ZITHROMAX PO SCH (09:46)
[2016-04-15] MEDS: TYLENOL PO PRN (09:54)
[2016-04-15] MEDS: NORCO-5 PO PRN (21:36)
--- NOTE | 2016-04-16 06:14 | EKG Report ---
Test Performed on : 04/15/2016 9:11:10 PM Test Reason : CP Blood Pressure : / mmHG Vent. Rate : 071 BPM Atrial Rate : 071 BPM P-R Int : 262 ms QRS Dur : 084 ms QT Int : 412 ms P-R-T Axes : 000 047 -89 degrees QTc Int : 447 ms Atrial-paced rhythm with prolonged AV conduction ST & T wave abnormality, consider inferior ischemia ST & T wave abnormality, consider anterolateral ischemia Abnormal ECG When compared with ECG of 14-APR-2016 09:50, (Unconfirmed) No significant change was found Unconfirmed Result
[2016-04-16] MEDS ORDERED: PERCOCET-10 PO PRN (07:54)
[2016-04-16] MEDS ORDERED: DULCOLAX PR PRN (07:54)
[2016-04-16] MEDS ORDERED: RESTORIL PO PRN (07:54)
--- NOTE | 2016-04-16 08:28 | PROGRESS NOTE ---
DATE: 04/15/2016 SUBJECTIVE: Patient notes she is feeling a little bit better. She is having no real shortness of breath or chest pain. Denies any dyspnea on exertion currently, but has not been out of bed much. Denies any PND or orthopnea. Denies chest pain, GI or issues. OBJECTIVE: Vital Signs: Reviewed. Temperature 98, pulse 70, respiratory 18, BP 144/72. General: Patient is well-developed, well-nourished. She is currently in no real respiratory distress. She is awake, alert, oriented. Neck: Supple. CV: Regular rate. Chest: Relatively clear. Abdomen: Soft. Extremities: Moves all extremities. Neurologic: No changes. Skin: Warm and dry, no rashes. LABS: Reviewed. ASSESSMENT: Will continue patient's home medications. Her IV infiltrated and has been difficult to replace, therefore will change everything over to oral. If she does well, hopefully home in 1- 2 days.
--- NOTE | 2016-04-16 08:31 | PROGRESS NOTE ---
DATE: 04/16/2016 SUBJECTIVE: Patient is feeling a little bit better. Less cough, congestion, less shortness of breath. Denies any fevers or chills. OBJECTIVE: Vital Signs: Reviewed. Temperature 97, pulse 71, respiratory rate 18, BP 139/86, saturation 100% on room air, which is what is listed on the patient, currently is on 2 L per nasal cannula. General: She is awake, alert, oriented. She is in no distress. HEENT: Normocephalic. Neck: Supple. CV: Regular rate. Chest: Relatively clear. No crackles. No wheezing. Abdomen: Soft. LABS: Pending. ASSESSMENT: 1. Congestive heart failure, systolic, with mild exacerbation. 2. Questionable pneumonia, improved. 3. Chest pain in a patient with a known history of coronary artery disease. Likely more gastrointestinal related. PLAN: We will check labs this morning. We will have staff assist patient getting out of bed, assuming she can ambulate. Hopefully, can be discharged home later this afternoon.
[2016-04-16] MEDS: LASIX PO SCH ×2 (08:33→20:54)
[2016-04-16] MEDS: MULTI-VITAMIN PO SCH (08:33)
[2016-04-16] MEDS: MIRALAX PO SCH (08:33)
[2016-04-16] MEDS: ZITHROMAX PO SCH (08:33)
[2016-04-16] MEDS: COLACE PO SCH ×2 (08:33→20:53)
[2016-04-16] MEDS: CALTRATE 600 + D PO SCH (08:34)
[2016-04-16] MEDS: TOPROL XL PO SCH (08:34)
[2016-04-16] MEDS: ASPIRIN EC PO SCH (08:34)
[2016-04-16] MEDS: PRINIVIL PO SCH (08:34)
[2016-04-16] MEDS: SYNTHROID PO SCH ×2 (08:34)
[2016-04-16] MEDS: VITAMIN D PO SCH (08:34)
[2016-04-16] MEDS: OMNICEF PO SCH ×2 (08:34→20:53)
[2016-04-16] MEDS: PERICOLACE PO SCH (08:34)
[2016-04-16] MEDS: LACTULOSE PO SCH ×2 (08:35→20:54)
[2016-04-16 10:21] LABS: HEMATOCRIT 33.9 % (37.0-47.0); HEMOGLOBIN 11.3 g/dL (12.0-16.0); MCH 34.3 PG (27-31); MCHC 33.3 g/dL (33-37); RBC 3.29 XMIL (4.2-5.4)
[2016-04-16 10:25] LABS: ALBUMIN 3.5 g/dL (3.5-5.0); CALCIUM 9.1 mg/dL (8.8-10.2); MAGNESIUM 1.8 mg/dL (1.5-2.7); POTASSIUM 3.1 mmol/L (3.5-5.1); TOTAL BILIRUBIN 0.3 mg/dL (0.20-1.00); TOTAL PROTEIN 6.1 g/dL (6.3-8.3)
--- NOTE | 2016-04-16 10:56 | HISTORY AND PHYSICAL ---
CHIEF COMPLAINT: Shortness of breath. HISTORY OF PRESENT ILLNESS: Patient is an 89-year-old female who presented to the emergency department as noted in the secondary to feeling short of breath. She was just in the hospital approximately a month ago with pneumonia, stayed for a couple of days and then went to [facility]. She has been home for the past week. Denies any change in her medications since arriving home. ALLERGIES: Lipitor causing nausea and vomiting, Coumadin causing nausea, and latex causing a rash. MEDICATIONS: Aspirin, metoprolol 25, Restoril 15 p.r.n., Keflex 500 three times a day, Dulcolax, calcium, vitamin D, Colace, Flonase, Prinivil 5, lactulose 30 b.i.d., Synthroid 125, mirtazapine 45 at bedtime, Protonix, oxycodone 10 p.r.n. REVIEW OF SYSTEMS: Positive for cough and congestion. Denies any fevers, chills. Denies any production to her cough. Positive shortness of breath and dyspnea on exertion. Denies any chest pain or palpitations. Symptoms did not worsen with lying down. Denies any dysuria or any frequency. Denies any GI or issues otherwise. PAST MEDICAL HISTORY: Significant for known coronary artery disease, atrial fibrillation, congestive heart failure, hypertension, hyperlipidemia, history of [place]. She has a pacemaker. History of sleep apnea, history of breast cancer, hypothyroidism, history of skin cancer on her nose. PAST SURGICAL HISTORY: She is status post cholecystectomy, cardiac stenting x2, pacemaker placement, hysterectomy, and mastectomy on the right. FAMILY HISTORY: Noncontributory. SOCIAL HISTORY: Patient currently is back home. She has family that cares for her on a regular basis. She does not smoke or drink. PHYSICAL EXAMINATION: VITAL SIGNS: Vital Signs are reviewed. Temperature 97 degrees, pulse 72, respiratory rate 18, BP 175/91, saturation 94% on room air. GENERAL: Patient is well-developed and well-nourished. She is currently in no real respiratory distress. She is awake, alert. NECK: Supple. CV: Regular rate. CHEST: Clear but decreased bilaterally and equal. ABDOMEN: Soft and nondistended. EXTREMITIES: Moves all extremities. LABORATORY DATA: CBC normal. CMP reviewed. ASSESSMENT: 1. Pulmonary edema, likely secondary to congestive heart failure versus pneumonia. 2. Shortness of breath. 3. Known coronary artery disease. 4. Congestive heart failure, systolic, with small exacerbation. 5. Hypertension. 6. Hyperlipidemia. 7. Chronic depression. PLAN: We will admit the patient to the hospital. IV fluids will be held currently. We will place her on antibiotics as this certainly could be pneumonia. We will use Lasix. We will continue to follow. Continue her other home medications. Further orders as needed.
[2016-04-16] MEDS ORDERED: REMERON PO SCH (21:00)
[2016-04-16] MEDS ORDERED: FLONASE NAS SCH (21:00)
[2016-04-16] MEDS: NORCO-5 PO PRN (21:24)
[2016-04-17] MEDS: SYNTHROID PO SCH ×2 (06:54)
[2016-04-17] MEDS ORDERED: SYNTHROID PO SCH (07:00)
[2016-04-17] MEDS ORDERED: PROTONIX PO SCH (07:00)
[2016-04-17 07:33] VITALS: BP 103/57
[2016-04-17] MEDS: LACTULOSE PO SCH ×2 (09:11→09:23)
[2016-04-17] MEDS: MIRALAX PO SCH ×2 (09:11→09:22)
[2016-04-17] MEDS: OMNICEF PO SCH (09:12)
[2016-04-17] MEDS: CALTRATE 600 + D PO SCH (09:12)
[2016-04-17] MEDS: ZITHROMAX PO SCH (09:12)
[2016-04-17] MEDS: TYLENOL PO PRN (09:12)
[2016-04-17] MEDS: VITAMIN D PO SCH (09:12)
[2016-04-17] MEDS: ASPIRIN EC PO SCH (09:12)
[2016-04-17] MEDS: MULTI-VITAMIN PO SCH (09:13)
[2016-04-17] MEDS: TOPROL XL PO SCH (09:13)
[2016-04-17] MEDS: LASIX PO SCH (09:13)
[2016-04-17] MEDS: PRINIVIL PO SCH (09:13)
[2016-04-17] MEDS: PERICOLACE PO SCH (09:13)
[2016-04-17] MEDS: COLACE PO SCH (09:13)
--- NOTE | 2016-04-17 10:40 | DISCHARGE SUMMARY ---
ADMISSION DATE: 04/14/2016 DISCHARGE DATE: 04/17/2016 DISCHARGE DIAGNOSES: 1. Congestive heart failure with mild systolic exacerbation improved. 2. Pneumonia improved. 3. Chest pain resolved. 4. Adult failure to thrive. Patient is able to ambulate on her own with a walker. CONSULTATIONS: None. PROCEDURE: None. BRIEF HOSPITAL COURSE: Patient is a 89-year-old female who was admitted as noted on the HPI, and treated in the usual fashion. She was placed initially on IV antibiotics. Her IV infiltrated and thankfully she was stable enough to transfer over to p.o. medication which she tolerated very well. On discharge, the patient is awake and alert. She is in no distress. She is able to ambulate to the restroom with her walker. TIME SPENT: 35 minutes was spent in discharge planning instructions.
== END 2016-04-17 10:45 | disposition home health service (06) | DRG 291 ==
LOC: P.ED 08:44 → P.MEDSURG 12:00 → OBSVTOIN 12:00
PROVIDERS: ADMIT Family Medicine; ATTEND Family Medicine
DX: I11.0 Hypertensive heart disease with heart failure (principal); J18.9 Pneumonia, unspecified organism; I50.23 Acute on chronic systolic (congestive) heart failure; I48.91 Unspecified atrial fibrillation; E78.5 Hyperlipidemia, unspecified; I25.2 Old myocardial infarction; Z95.0 Presence of cardiac pacemaker; G47.30 Sleep apnea, unspecified; Z85.3 Personal history of malignant neoplasm of breast; E03.9 Hypothyroidism, unspecified; Z85.828 Personal history of other malignant neoplasm of skin; Z95.5 Presence of coronary angioplasty implant and graft; I25.10 Atherosclerotic heart disease of native coronary artery without angina pectoris; F32.9 Major depressive disorder, single episode, unspecified; R62.7 Adult failure to thrive; Z79.899 Other long term (current) drug therapy; Z79.82 Long term (current) use of aspirin; Z79.51 Long term (current) use of inhaled steroids
CPT/HCPCS: 36415; 71010; 71020; 80053; 82550; 83735; 83880; 84484; 85025; 85027; 85610; 85730; 93005; 94761; 96365; 96375; J0456; J0696; J1940; J7030